=== PATIENT | male | born 1985 ===

== ENCOUNTER → 2016-06-27 | Outpatient (CLI) | payer OTHER ==
[~2016-06-27] MED LIST: GADAVIST IV PRN
--- NOTE | 2016-06-27 18:44 | DIAGNOSTIC IMAGING REPORT ---
MRI OF THE BRAIN WITHOUT AND WITH IV CONTRAST CLINICAL HISTORY: PEREZ mental status change COMPARISON STUDY: No previous studies for comparison. TECHNIQUE: Utilizing a 1.5 Sayra magnet and dedicated coil, multiplanar, multiecho imaging of the brain was performed pre and postcontrast administration. IV administration of 8 mL of Gadavist contrast was uneventful. FINDINGS: No evidence for an acute ischemic event based on diffusion-weighted images. Signal characteristics of the cerebellar as well as cerebral hemispheres are unremarkable. Ventricular system is midline. No significant postcontrast enhancement IMPRESSION: Negative study Electronically signed by: Pietro Cordova M.D. 06/27/2016 6:43 PM Dictated Date/Time: 06/27/2016 6:41 PM
== END | disposition home or self-care (01) ==
LOC: C.MRI 17:37
PROVIDERS: ATTEND Physician Assistant
DX: R51 Headache (principal)